=== PATIENT | male | born 2000 | race African-American/Black ===

== ENCOUNTER 2025-03-24 15:28 | Emergency (ER) | payer OTHER ==
[~2025-03-24] VITALS: Ht 170.2 cm; Wt 57.8 kg
[2025-03-24 15:29] VITALS: BP 120/74; PULSE 68; RESP 15; TEMP 99.2; O2SAT 100
--- NOTE | 2025-03-24 16:44 | ED.PDOC ---
History of Present Illness HPI Comments 24-year-old male presents to the ER with no prior medical history associated with a chief complaint of a rash. Patient reports on having a rash of the bilateral arms for two months. Denies chills, fever, N/V/D, SOB, CP. No other associated symptoms, modifiers, recent injuries or sick contacts present at this time. Chief Complaint: Rash Time Seen by MD: 16:50 Reviewed Notes: Nurses Notes, Medications, Allergies Allergies: Coded Allergies: NO KNOWN ALLERGIES (Unverified , 03/24/25) Information Source: Patient Mode of Arrival: Ambulatory Severity: Moderate Timing: Months Duration: Since onset Prehospital treatment: None Past Medical History PAST MEDICAL HISTORY: Denies Surgical History: Denies all surgeries Family History Family History: Reviewed,noncontributory to illness, Unknown Social History Smoker: Non-Smoker Alcohol: Denies ETOH Use Drugs: Denies Drug Use Lives In: Home Constitutional: denies: chills, diaphoresis, fatigue, fever, malaise, sweats, weakness, others EENTM: denies: blurred vision, double vision, ear bleeding, ear discharge, ear drainage, ear pain, ear ringing, eye pain, eye redness, hearing loss, mouth pain, mouth swelling, nasal discharge, nose bleeding, nose congestion, nose pain, photophobia, tearing, throat pain, throat swelling, voice changes, others Respiratory: denies: cough, hemoptysis, orthopnea, SOB at rest, shortness of breath, SOB with excertion, stridor, wheezing, others Cardiovascular: denies: chest pain, dizzy spells, diaphoresis, Dyspnea on exertion, edema, irregular heart beat, left arm pain, lightheadedness, palpitations, PND, syncope, others Gastrointestinal: denies: abdomen distended, abdominal pain, blood streaked bowels, constipated, diarrhea, dysphagia, difficulty swallowing, hematemesis, melena, nausea, poor appetite, poor fluid intake, rectal bleeding, rectal pain, vomiting, others Genitourinary: denies: burning, dysuria, flank pain, frequency, hematuria, inc ontinence, penile discharge, penile sore, pain, testicle pain, testicle swelling, urgency, others Neurological: denies: dizziness, fainting, headache, left sided numbness, left sided weakness, numbness, paresthesia, pre-existing deficit, right sided numbness, right sided weakness, seizure, speech problems, tingling, tremors, weakness, others Musculoskeletal: denies: back pain, gout, joint pain, joint swelling, muscle pain, muscle stiffness, neck pain, others Integumetry: reports: rash (On bilateral arms); denies: bruises, change in color, change in hair/nails, dryness, laceration, lesions, lumps, wounds, others Allergic/Immunocompromised: denies: Difficulty Healing, Frequent Infections, Hives, Itching, others Hematologic/Lymphatic: denies: anemia, blood clots, easy bleeding, easy bruising, swollen glands, others Endocrine: denies: excessive hunger, excessive sweating, excessive thirst, excessive urination, flushing, intolerance to cold, intolerance to heat, unexplained weight gain, unexplained weight loss, others Psychiatric: denies: anxiety, bipolar disorder, depression, hopeless, panic disorder, schizophrenia, sleepless, suicidal, others All Other Systems: Reviewed and Negative Physical Exam General Appearance: No Apparent Distress, Normal HEENT: Normal ENT Inspection, Pharynx Normal, TMs Normal Neck: Full Range of Motion, Non-Tender, Normal, Normal Inspection Respiratory: Chest Non-Tender, Lungs Clear, No Accessory Muscle Use, No Respiratory Distress, Normal Breath Sounds Cardiovascular: No Edema, No JVD, No Murmur, No Gallop, Normal Peripheral Pulses, Regular Rate/Rhythm Breast Exam: Deferred Gastrointestinal: No Organomegaly, Non Tender, No Pulsatile Mass, Normal Bowel Sounds, Soft Genitalia: Deferred Pelvic: Deferred Rectal: Deferred Extremities: No calf tenderness, Normal capillary refill, Normal inspection, Normal range of motion, Non-tender, No pedal edema Musculoskeletal : Apperance: Normal 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 Was a procedure done?: No X-Ray, Labs, Meds, VS Vital Signs Date Time Temp Pulse Resp B/P (MAP) Pulse Ox O2 Delivery O2 Flow Rate FiO2 03/24/25 15:29 99.2 68 15 120/74 100 99.2 Time of 1ST Reevaluation: 17:20 Reevaluation 1ST: Unchanged Patient Education/Counseling: Diagnosis, Treatment, Prognosis Family Education/Counseling: No Family Present SEPSIS Sepsis Screen Date sepsis recognized/suspect: Mar 24, 2025 Time Sepsis recognized/suspect: 1530 Recent Procedure: No On Antibiotic Therapy: No Respiratory Rate >20: No Heart Rate >90: No Temp<36 C (96.8 F) or >38.3 C: No SBP <90 or MAP <65 mmHG: No New Acute Mental Status Change: No Is the patient on CPAP, BIPAP,: No Vital Signs Date Time Temp Pulse Resp B/P (MAP) Pulse Ox O2 Delivery O2 Flow Rate FiO2 03/24/25 15:29 99.2 68 15 120/74 100 99.2 Critical Care Note Critical Care Time?: No Stability Stability form required: No I personally scribed for ER ([email or web address]) on 03/24/25 at 16:44. Electronically submitted by Ed Church ([email or web address]). ER Mar 24, 2025 16:44
== END 2025-03-24 17:39 | disposition home or self-care (01) ==
LOC: ER 15:28
DX: R21 Rash and other nonspecific skin eruption (principal)

== ENCOUNTER 2025-04-29 22:13 | Emergency (ER) | payer OTHER ==
[~2025-04-29] VITALS: Ht 170.2 cm; Wt 60.1 kg
--- NOTE | 2025-04-29 23:38 | ED.PDOC ---
History of Present Illness HPI Comments 24-year-old male brought in by friends. Patient states he was a patient at [facility], he is discharge 2 hours prior to arrival to here. Patient is concerned because he is depressed and has suicidal ideations, states he has not given any treatment or treatment plan prior to discharge. Patient reports he has had prior suicidal thoughts and attempts just two weeks ago. States his plan was to shoot himself. Chief Complaint: Palpitations Time Seen by MD: 22:30 Reviewed Notes: Nurses Notes Allergies: Coded Allergies: NO KNOWN ALLERGIES (Unverified , 03/24/25) Information Source: Patient Mode of Arrival: Ambulatory Past Medical History PAST MEDICAL HISTORY: Denies Surgical History: Denies all surgeries Family History Family History: Reviewed,noncontributory to illness, Unknown Social History Smoker: Non-Smoker Alcohol: Denies ETOH Use Drugs: Denies Drug Use Lives In: Home Constitutional: denies: chills, diaphoresis, fatigue, fever, malaise, sweats, weakness, others EENTM: denies: blurred vision, double vision, ear bleeding, ear discharge, ear drainage, ear pain, ear ringing, eye pain, eye redness, hearing loss, mouth pain, mouth swelling, nasal discharge, nose bleeding, nose congestion, nose pain, photophobia, tearing, throat pain, throat swelling, voice changes, others Respiratory: denies: cough, hemoptysis, orthopnea, SOB at rest, shortness of breath, SOB with excertion, stridor, wheezing, others Cardiovascular: denies: chest pain, dizzy spells, diaphoresis, Dyspnea on exertion, edema, irregular heart beat, left arm pain, lightheadedness, palpitations, PND, syncope, others Gastrointestinal: denies: abdomen distended, abdominal pain, blood streaked bowels, constipated, diarrhea, dysphagia, difficulty swallowing, hematemesis, melena, nausea, poor appetite, poor fluid intake, rectal bleeding, rectal pain, vomiting, others Genitourinary: denies: burning, dysuria, flank pain, frequency, hematuria, incontinence, penile discharge, penile sore, pain, testicle pain, testicle swelling, urgency, others Neurological: denies: dizziness, fainting, headache, left sided numbness, left sided weakness, numbness, paresthesia, pre-existing deficit, right sided numbness, right sided weakness, seizure, speech problems, tingling, tremors, weakness, others Musculoskeletal: denies: back pain, gout, joint pain, joint swelling, muscle pain, muscle stiffness, neck pain, others Psychiatric: reports: depression, suicidal Physical Exam General Appearance: No Apparent Distress, Normal HEENT: Normal ENT Inspection, Pharynx Normal, TMs Normal Neck: Full Range of Motion, Non-Tender, Normal, Normal Inspection Respiratory: Chest Non-Tender, Lungs Clear, No Accessory Muscle Use, No Respiratory Distress, Normal Breath Sounds Cardiovascular: No Edema, No JVD, No Murmur, No Gallop, Normal Peripheral Pulses, Regular Rate/Rhythm Breast Exam: Deferred Gastrointestinal: No Organomegaly, Non Tender, No Pulsatile Mass, Normal Bowel Sounds, Soft Genitalia: Deferred Pelvic: Deferred Rectal: Deferred Extremities: No calf tenderness, Normal capillary refill, Normal inspection, Normal range of motion, Non-tender, No pedal edema Musculoskeletal : Apperance: Normal 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 Was a procedure done?: No Differential Dx Considerations may include: Depression, SI X-Ray, Labs, Meds, VS Vital Signs Date Time Temp Pulse Resp B/P (MAP) Pulse Ox O2 Delivery O2 Flow Rate FiO2 04/30/25 00:19 98.3 76 18 133/89 (104) 100 98.3 04/30/25 00:19 76 18 100 Room Air* 0 21 04/29/25 23:27 72 04/29/25 22:21 97.4 109 20 133/99 100 97.4 04/29/25 22:17 93 X-Ray, Labs, Meds, VS Comment Patient refusing lab works Time of 1ST Reevaluation: 23:37 Reevaluation 1ST: Unchanged Patient Education/Counseling: Diagnosis, Treatment Family Education/Counseling: Diagnosis, Treatment SEPSIS Sepsis Screen Date sepsis recognized/suspect: Apr 29, 2025 Time Sepsis recognized/suspect: 2223 Recent Procedure: No On Antibiotic Therapy: No Respiratory Rate >20: No Heart Rate >90: Yes Temp<36 C (96.8 F) or >38.3 C: No SBP <90 or MAP <65 mmHG: No New Acute Mental Status Change: No Is the patient on CPAP, BIPAP,: No Physician Orders Electrocardigram (04/29/25 22:28) Electrocardigram (04/29/25 23:28) Electrocardigram (04/30/25 01:28) Drug Screen (04/29/25 22:47) * Psychiatric Consult (04/29/25 23:25) Vital Signs Date Time Temp Pulse Resp B/P (MAP) Pulse Ox O2 Delivery O2 Flow Rate FiO2 04/30/25 00:19 98.3 76 18 133/89 (104) 100 98.3 04/30/25 00:19 76 18 100 Room Air* 0 21 04/29/25 23:27 72 04/29/25 22:21 97.4 109 20 133/99 100 97.4 04/29/25 22:17 93 Departure 1 Departure Time of Disposition: 23:36 Impression: Primary Impression: Suicide ideation Disposition: 30 STILL A PATIENT Condition: Stable Critical Care Note Critical Care Time?: No Stability Stability form required: No Heart Score Heart Score: Heart Score Response (Comments) Value History N/A 0 EKG N/A 0 Age N/A 0 Risk Factors N/A 0 Troponin N/A 0 Total 0 ALAN BHAGAT Apr 29, 2025 23:38
[2025-04-30 00:19] VITALS: PULSE 76; RESP 18; O2SAT 100
--- NOTE | 2025-04-30 01:57 | DVHINCON2 ---
Date of Service if different f: Apr 30, 2025 Time of Service: 01:56 Consult Consult Note PSYCHIATRY ED NEW CONSULT HPI: 24 yo pt with PPH of depression presents to ED for safety, psychiatric stabilization, and possible med initiation/optimization in setting of depression, anxiety, and passive SI. Psychiatry consulted for safety evaluation and recommendations in context of current presentation Pt reports over past several days to weeks experiencing worsening depressed mood, hopelessness/helplessness, negative thoughts, poor sleep/appetite, britney tivation, and anxiety symptoms to include excessive worry, somatic symptoms (generalized body pain), anger outbursts, emotional dysregulation, mood reactivity, restlessness, intrusive thoughts, palpitations, and irritability although some symptoms appear chronic in nature. Also intermittent fleeting SI with plan to shoot self although no means or actual intent. 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 Denies HI/A VH/paranoia/catatonic/perceptual disturbances. 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 Childhood emotional trauma hx FH: Denies FH of psych hospitalizations, suicide attempts, or completed suicides PMH: + heart murmur. No hx of seizures/TBI, HIV/hep C, or recent head injuries, NKDA Some hx of SI/SIB via cutting - last cut several years ago, also hx of SA/PSG resulting in several prior psych hospitalizations for SI, most recent this month at [facility]. Denies history of violence, aggression, or assaultive behaviors. Denies recent hx of impulsivity, attention seeking behaviors, anger outbursts, emotional dysregulation, mood reactivity,or engaging in risky/reckless behaviors. Denies any legal problems. Does not have access to firearms MSE: General Appearance/Behavior: Alert/awake; appears stated age, fair grooming/hygiene; calm and cooperative, bit guarded at times, fair eye contact, no PMA/PMR Speech: coherent, rrr Thought Process: L/L/GD Thought Content: Abnormal Thoughts/Perceptions: denies dissociative symptoms Homicidality / Violent Thoughts: adamantly denies HI Suicidality: + SI Hallucinations: denies AVTH Delusions: denies paranoia, persecutory, or grandiose delusions Obsessions /compulsions: None Judgment/Insight: fair/fair Mood & Affect: "depressed" with mood-congruent, somewhat restricted/appropriate Orientation: oriented x 3 Attention/Concentration: appears intact Cognition: grossly intact Assessment: 24 yo pt with PPH of depression and PTSD presents to ED for safety, psychiatric stabilization, and possible med initiation/optimization in setting of depression, anxiety, and passive SI. Pt currently expressing some SI in setting of several recent acute life stressors (see hpi). Limited protective factors presently. Not on any psychotropics which may be contributing to current symptoms. Pt agrees to talk with staff instead of acting on any suicidal feelings while in ED. Pt medically cleared in ED Acute safety risk remains slightly elevated and is appropriate for inpatient psychiatric admission for further safety, psychiatric stabilization, and possible medication initiation. Pt willing to transfer to inpt psych facility voluntarily. Consider 5150 hold for DTS ONLY if needed for transfer or if no voluntary beds are available Primary Diagnosis: Adjustment disorder with depressed mood and anxiety. Depressive disorder unspecified. R/o Cluster B pathology. PTSD, hx (self report) Recommend VOL transfer to inpt psych facility for higher level of care 1:1 sitter is recommended Maintain suicide precautions One time dose of melatonin 10 mg po now per pts request Start Sertraline 50 mg po qAM Risks/benefits/alternative treatments discussed, informed consent provided by pt If patient later refuses voluntary hospitalization/ requests to be discharged from ED prior to transfer, please reconsult telepsych services to evaluate for 5150 DTS hold Pt verbalized understanding and is receptive to above tx plan This case was discussed with ED nurse/provider and all parties in agreement with above tx plan Almas Ornelas MD Plan discussed with: Patient ALMAS ORNELAS MD Apr 30, 2025 01:57
[2025-04-30] MEDS: MELATONIN 5 MG TAB PO ONE (04:21)
[2025-04-30 07:15] VITALS: PULSE 70; RESP 18; O2SAT 99
[2025-04-30 07:47] LABS: Amphetamine Screen, Urine Neg (NEGATIVE); Barbiturate Scree,Urine Neg (NEGATIVE); Benzodiazephine Screen, Urine Neg (NEGATIVE); Cannabinoid Screen, Urine Neg (NEGATIVE); Cocaine Screen, Urine Neg (NEGATIVE); Opiate Scree,Urine Neg (NEGATIVE); Phencyclidine Screen, Urine Neg (NEGATIVE)
[2025-04-30] MEDS: SERTRALINE HCL 50 MG TAB PO ONE (08:15)
--- NOTE | 2025-04-30 09:38 | ECG ---
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
--- NOTE | 2025-04-30 09:38 | ECG ---
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
[2025-04-30 12:01] VITALS: BP 120/76; PULSE 82; RESP 18; TEMP 98.4; O2SAT 100
== END 2025-04-30 12:11 ==
LOC: ER 22:13
DX: R45.851 Suicidal ideations (principal); F32.A Depression, unspecified
CPT/HCPCS: 80307; 93005